=== PATIENT | female | born 1995 | race African-American/Black ===

== ENCOUNTER 2023-02-15 17:27 | Emergency (ER) | payer OTHER ==
[2023-02-15 17:33] VITALS: BP 133/83; PULSE 90; RESP 18; TEMP 98.1; BMI 43.9
[2023-02-15] MEDS ORDERED: IBUPROFEN 600 MG TABLET (FP) PO ONE ×2 (18:11→18:16)
== END 2023-02-15 18:40 | disposition home or self-care (01) ==
LOC: JERFT 17:27
DX: M54.50 Low back pain, unspecified (principal); V49.40XA Driver injured in collision with unspecified motor vehicles in traffic accident, initial encounter; Y93.I9 Activity, other involving external motion
CPT/HCPCS: 99283-25